=== PATIENT | male | born 1955 | race Caucasian/White ===

== ENCOUNTER 2017-12-18 17:32 | Inpatient (IN) | payer MEDICARE, OTHER ==
[~2017-12-18] VITALS: Ht 172.7 cm; Wt 65.1 kg
[~2017-12-18 17:32] MED LIST: INSLAN SQ; LANTUS; LANTUS SQ; LISI-618 PO; METF-444 PO
[2017-12-18 18:05] LABS: GLUCOSE,POINT OF CARE 360 MG/DL (70-110)
[2017-12-18 18:18] LABS: BASOPHILS % (AUTO) 0.8 % (0.0-2.0); EOSINOPHILS % (AUTO) 5.6 % (1.0-6.0); HEMATOCRIT 34.2 % (41-53); HEMOGLOBIN 11.9 g/dL (13.5-17.5); LYMPHOCYTES # (AUTO) 0.8 K/uL (1.0-4.8); LYMPHOCYTES % (AUTO) 15.5 % (22.0-44.0); MEAN CORPUSCULAR HEMOGLOBIN 30.7 pg (26.0-34.0); MEAN CORPUSCULAR HGB CONC 34.8 G/dL (31.0-37.0); MEAN CORPUSCULAR VOLUME 88 fL (80-100); MONOCYTES # (AUTO) 0.4 K/uL (0.1-1.0); MONOCYTES % (AUTO) 7.1 % (2.0-9.0); NEUTROPHILS # (AUTO) 3.6 K/uL (1.8-7.7); RED BLOOD CELL COUNT(AUTO) 3.87 MIL/uL (4.50-5.90); RED CELL DISTRIBUTION WIDTH 14.2 % (11.5-14.5)
[2017-12-18 18:28] LABS: CALCIUM, TOTAL 8.2 mg/dL (8.8-10.5); CREATININE 5.03 mg/dL (0.60-1.30); POTASSIUM 4.6 mmol/L (3.5-5.1)
[2017-12-18 18:34] LABS: ALBUMIN 3.4 g/dL (3.4-5.0); BILIRUBIN,TOTAL 0.5 mg/dL (0.1-1.0)
[2017-12-18 18:45] LABS: PLATELET COUNT (AUTO) 98 K/uL (150-450); PLATELET MORPHOLOGY COMMENT GIANT PLTS PRESENT
[2017-12-18] MEDS ORDERED: DEXTROSE 50%-WATER 25 GM/50 ML SYRINGE IVP PRN (19:00)
[2017-12-18] MEDS ORDERED: BARIUM SULFATE 0.1% SUSPENSION 450 ML BOTTLE PO ONE (19:00)
[2017-12-18] MEDS ORDERED: HYDROmorphone 2 MG/ML SYRINGE IVP PRN (19:15)
[2017-12-18] MEDS ORDERED: ACETAMINOPHEN 325 MG TABLET PO PRN (19:15)
[2017-12-18] MEDS ORDERED: BISACODYL 10 MG RECTAL RECTAL SUPPOSITORY PR PRN (19:15)
[2017-12-18] MEDS ORDERED: ONDANSETRON HCL 4 MG/2 ML VIAL IVP PRN (19:15)
[2017-12-18] MEDS ORDERED: IPRATROPIUM BROMIDE 0.5 MG/2.5 ML NEB SOLUTION NEB PRN (19:15)
[2017-12-18] MEDS ORDERED: ALBUTEROL SULFATE 2.5 MG/0.5 ML NEB SOLUTION NEB PRN (19:15)
[2017-12-18] MEDS ORDERED: HydrALAZINE HCL 20 MG/ML VIAL IVP PRN (19:30)
[2017-12-18 19:34] LABS: CKMB RELATIVE INDEX 4.3 % (0.0-4.0); CREATINE KINASE MB 5.4 ng/mL (0-5)
[2017-12-18] MEDS: PANTOPRAZOLE SODIUM 40 MG/VIAL IVP SCH (19:57)
[2017-12-18] MEDS: SODIUM CHLORIDE 0.9% 1,000 ML IV SCH (20:13)
[2017-12-18] MEDS: HydrALAZINE HCL 25 MG TABLET PO SCH (21:43)
[2017-12-19 08:35] LABS: BASOPHILS % (AUTO) 0.8 % (0.0-2.0); EOSINOPHILS % (AUTO) 7.8 % (1.0-6.0); HEMATOCRIT 36.1 % (41-53); HEMOGLOBIN 12.8 g/dL (13.5-17.5); LYMPHOCYTES # (AUTO) 1.1 K/uL (1.0-4.8); LYMPHOCYTES % (AUTO) 17.9 % (22.0-44.0); MEAN CORPUSCULAR HEMOGLOBIN 31.3 pg (26.0-34.0); MEAN CORPUSCULAR HGB CONC 35.4 G/dL (31.0-37.0); MEAN CORPUSCULAR VOLUME 88 fL (80-100); MONOCYTES # (AUTO) 0.4 K/uL (0.1-1.0); MONOCYTES % (AUTO) 6.4 % (2.0-9.0); NEUTROPHILS % (AUTO) 67.1 % (40.0-70.0); PLATELET COUNT (AUTO) 93 K/uL (150-450); RED BLOOD CELL COUNT(AUTO) 4.08 MIL/uL (4.50-5.90); RED CELL DISTRIBUTION WIDTH 13.9 % (11.5-14.5)
[2017-12-19 08:51] LABS: % IRON SATURATION 63.1 % (30-44)
[2017-12-19 09:03] LABS: ALBUMIN 3.1 g/dL (3.4-5.0); BILIRUBIN,TOTAL 0.6 mg/dL (0.1-1.0); CALCIUM, TOTAL 7.8 mg/dL (8.8-10.5); CHOL/HDL RATIO 2.6 (4.2-7.3); CREATININE 5.92 mg/dL (0.60-1.30); FREE T4 (FREE THYROXINE) 0.85 ng/dL (0.76-1.46); MAGNESIUM 1.9 mg/dL (1.80-2.40); PHOSPHORUS 6.3 mg/dL (2.5-4.9); POTASSIUM 4.4 mmol/L (3.5-5.1); THYROID STIMULATING HORMONE 1.86 uIU/mL (0.36-3.74); TOTAL PROTEIN, SERUM 6.5 g/dL (6.4-8.2)
[2017-12-19 09:17] LABS: HEMOGLOBIN A1C 9.3 % (4.5-6.2)
[2017-12-19 09:20] VITALS: BP 165/85
[2017-12-19] MEDS: CARVEDILOL 3.125 MG TABLET PO SCH ×2 (10:00→21:00)
[2017-12-19] MEDS: PANTOPRAZOLE SODIUM 40 MG/VIAL IVP SCH (10:09)
[2017-12-19] MEDS: VITAMIN B COMP/VIT C/FOLIC ACID CAPSULE PO SCH (10:09)
[2017-12-19] MEDS: ASPIRIN 81 MG CHEWABLE TABLET PO SCH (10:11)
[2017-12-19 11:03] VITALS: BP 176/79
[2017-12-19] MEDS: HydrALAZINE HCL 25 MG TABLET PO SCH ×4 (11:33→21:13)
[2017-12-19 15:02] VITALS: BP 162/76
[2017-12-19] MEDS: SODIUM CHLORIDE 0.9% 1,000 ML IV SCH (15:21)
[2017-12-19 15:29] LABS: GLUCOMETER DEV NAME(LOC) 5S 2Q; GLUCOSE,POINT OF CARE 201 MG/DL (70-110)
[2017-12-19] MEDS: INSULIN LISPRO 100 UNITS/ML SQ PRN ×2 (18:08→21:41)
[2017-12-19 19:40] VITALS: BP 153/78
[2017-12-19 21:43] LABS: GLUCOMETER DEV NAME(LOC) 5S 2Q; GLUCOSE,POINT OF CARE 357 MG/DL (70-110)
[2017-12-20 00:11] VITALS: BP 161/79
[2017-12-20 04:34] VITALS: BP 177/84
[2017-12-20 05:21] VITALS: BP 173/75
[2017-12-20] MEDS: INSULIN LISPRO 100 UNITS/ML SQ PRN ×2 (06:23→12:34)
[2017-12-20 07:25] LABS: B-TYPE NATRIURETIC PEPTIDE 2210 pg/mL (0-100)
[2017-12-20 07:32] LABS: AMYLASE 95 U/L (25-115); ANION GAP 12 mmol/L (8-16); CALCIUM, TOTAL 7.6 mg/dL (8.8-10.5); CARBON DIOXIDE 24 mmol/L (22-29); CHLORIDE 97 mmol/L (98-107); CREATINE KINASE MB 4.3 ng/mL (0-5); CREATINE KINASE, TOTAL 97 U/L (39-308); CREATININE 7.03 mg/dL (0.60-1.30); GLOMERULAR FILTR. RATE CALC 8 mL/min (>60); GLUCOSE,RANDOM 229 mg/dL (70-110); LIPASE 547 U/L (73-393); SODIUM SERUM 133 mmol/L (136-145); UREA NITROGEN, BLOOD 68 mg/dL (7-18)
[2017-12-20 07:38] VITALS: BP 167/78
[2017-12-20 11:30] VITALS: BP 154/81
[2017-12-20] MEDS ORDERED: LOSARTAN POTASSIUM 25 MG TABLET PO SCH (11:30)
[2017-12-20] MEDS: PANTOPRAZOLE SODIUM 40 MG/VIAL IVP SCH (11:42)
[2017-12-20] MEDS: VITAMIN B COMP/VIT C/FOLIC ACID CAPSULE PO SCH (11:42)
[2017-12-20] MEDS: CARVEDILOL 3.125 MG TABLET PO SCH (11:42)
[2017-12-20] MEDS: ASPIRIN 81 MG CHEWABLE TABLET PO SCH (11:43)
[2017-12-20] MEDS: HydrALAZINE HCL 25 MG TABLET PO SCH ×3 (11:48→14:37)
[2017-12-20] MEDS: SODIUM CHLORIDE 0.9% 1,000 ML IV SCH (11:57)
[2017-12-20] MEDS ORDERED: FOLI1CAP2 PO (14:00)
[2017-12-20] MEDS ORDERED: CARV6 PO (14:01)
[2017-12-20] MEDS ORDERED: ASPI-556 PO (14:01)
[2017-12-20] MEDS ORDERED: LOSA25TA21 PO (14:02)
[2017-12-20] MEDS ORDERED: HYDR25TA84 PO (14:03)
[2017-12-20] MEDS ORDERED: LIDOCAINE HCL/PF 1% 2 ML VIAL IM ONE (14:59)
[2017-12-20 17:28] LABS: GLUCOMETER DEV NAME(LOC) 5S 2Q; GLUCOSE,POINT OF CARE 210 MG/DL (70-110)
[2017-12-20 17:29] LABS: GLUCOMETER DEV NAME(LOC) 5S 2Q; GLUCOSE,POINT OF CARE 172 MG/DL (70-110)
[2017-12-21 07:03] LABS: GLUCOMETER DEV NAME(LOC) 5N 2S; GLUCOSE,POINT OF CARE 91 MG/DL (70-110)
== END 2017-12-20 15:00 | disposition home or self-care (01) | DRG 438 ==
LOC: EMS 17:33 → 5S 12-19 04:30
PROVIDERS: ADMIT Internal Medicine; ATTEND Internal Medicine
PROC: 5A1D70Z Performance of Urinary Filtration, Intermittent, Less than 6 Hours Per Day (ICD-10-PCS; principal; 2017-12-20)
DX: K85.90 Acute pancreatitis without necrosis or infection, unspecified (principal); N18.6 End stage renal disease; I13.2 Hypertensive heart and chronic kidney disease with heart failure and with stage 5 chronic kidney disease, or end stage renal disease; G45.9 Transient cerebral ischemic attack, unspecified; I25.110 Atherosclerotic heart disease of native coronary artery with unstable angina pectoris; B18.2 Chronic viral hepatitis C; E11.22 Type 2 diabetes mellitus with diabetic chronic kidney disease; K74.60 Unspecified cirrhosis of liver; I50.9 Heart failure, unspecified; D63.8 Anemia in other chronic diseases classified elsewhere; I44.7 Left bundle-branch block, unspecified; N28.1 Cyst of kidney, acquired; D69.6 Thrombocytopenia, unspecified; E11.21 Type 2 diabetes mellitus with diabetic nephropathy; E11.65 Type 2 diabetes mellitus with hyperglycemia; Z79.82 Long term (current) use of aspirin; Z79.4 Long term (current) use of insulin; Z99.2 Dependence on renal dialysis; Z79.84 Long term (current) use of oral hypoglycemic drugs; I25.2 Old myocardial infarction
CPT/HCPCS: 70450; 74176; 82728; 83036; 83540; 83550; 83735; 84100; 84145; 84439; 84443; 87081; 87340; 93005; 93306; 99291; C9113; G0480; J0360; J3490; J7030